=== PATIENT | male | born 1955 | race African-American/Black ===

== ENCOUNTER → 2017-04-14 | Outpatient (CLI) | payer MEDICARE, MEDICAID ==
[~2017-04-14] MED LIST: AMLO10TA80 PO; GLIP2.5T3 PO; LINA5TAB PO; MELO-106 PO; PANT40TA4 PO; ROSU40TA PO; TERA2CAP4 PO; VALS1TAB78 PO
== END | disposition home or self-care (01) ==
LOC: US 10:44
PROVIDERS: ATTEND Internal Medicine Nephrology
DX: E83.52 Hypercalcemia (principal)
CPT/HCPCS: 76536

== ENCOUNTER → 2017-05-04 | Outpatient (CLI) | payer MEDICARE, MEDICAID ==
[~2017-05-04] MED LIST changes: -AMLO10TA80 PO; -GLIP2.5T3 PO; -LINA5TAB PO; -MELO-106 PO; -PANT40TA4 PO; -ROSU40TA PO; +SODIUM CHLORIDE 0.9% 10ML VIAL ONE; -TERA2CAP4 PO; -VALS1TAB78 PO
== END | disposition home or self-care (01) ==
LOC: NM 07:25
PROVIDERS: ATTEND Internal Medicine Nephrology
DX: E21.0 Primary hyperparathyroidism (principal)
CPT/HCPCS: 78070; A4216; A9500

== ENCOUNTER 2017-06-11 05:24 | Observation (INO) | payer MEDICARE, MEDICAID ==
[~2017-06-11] VITALS: Ht 195.6 cm; Wt 93.0 kg
[~2017-06-11 05:24] MED LIST changes: +AMLO10TA80 PO; +GLIP2.5T3 PO; +LINA5TAB PO; +MELO-106 PO; +PANT40TA4 PO; +ROSU40TA PO; -SODIUM CHLORIDE 0.9% 10ML VIAL ONE; +TERA2CAP4 PO; +VALS1TAB78 PO
[2017-06-11] MEDS: SODIUM CHLORIDE 0.9% 1,000 ML IV SCH ×2 (06:22→06:23)
[2017-06-11] MEDS ORDERED: LIDOCAINE HCL/EPINEPHRINE 1%-EPI 1:100,000 30 ML VIAL INFIL ONE (06:56)
[2017-06-11] MEDS ORDERED: BUPIVACAINE HCL/EPINEPHRINE/PF 0.5%/0.0005 10ML ONE (06:56)
[2017-06-11 07:01] LABS: BASOPHILS % 0.9 % (0.0-2.0); EOSINOPHILS % 4.8 % (0.0-5.0); HEMATOCRIT. 34.8 % (42.0-52.0); HEMOGLOBIN. 11.7 g/dL (14.0-18.0); LYMPHOCYTES % 34.3 % (20.0-50.0); MEAN CORPUSCULAR HEMOGLOBIN 28.7 pg (28.0-32.0); MEAN CORPUSCULAR VOLUME 85.1 fL (80.0-94.0); MEAN PLATELET VOLUME 8.5 fl (7.4-10.4); MONOCYTES % 11.8 % (2.0-8.0); NEUTROPHILS % 48.2 % (40.0-76.0); PLATELET 180 x1000/uL (130-400); RED BLOOD CELL COUNT 4.09 mill/uL (4.7-6.1); RED CELL DISTRIBUTION WIDTH 15.2 % (11.6-14.6)
[2017-06-11 07:17] LABS: CLARITY URINE CLEAR (CLEAR); COLOR URINE YELLOW (YELLOW); KETONES URINE NEGATIVE (NEGATIVE); LEUKOCYTE ESTERASE URINE NEGATIVE (NEGATIVE); NITRITE URINE NEGATIVE (NEGATIVE); OCCULT BLOOD URINE NEGATIVE (NEGATIVE); PH URINE 5.5 (4.5-8.0); PROTEIN URINE NEGATIVE (NEGATIVE); SPECIFIC GRAVITY URINE 1.014 (1.005-1.030)
[2017-06-11] MEDS ORDERED: FENTANYL CITRATE/PF 50MCG/ML 5ML VIAL ONE (07:26)
[2017-06-11] MEDS ORDERED: PROPOFOL 200MG/20ML VIAL IV ONE ×3 (07:27→09:03)
[2017-06-11] MEDS ORDERED: HYDROCODONE/ACETAMINOPHEN 5/325MG TABLET PO PRN ×5 (07:45→13:00)
[2017-06-11] MEDS ORDERED: GLYCOPYRROLATE 0.2 MG/ML 2ML VIAL ONE (07:45)
[2017-06-11] MEDS ORDERED: MORPHINE SULFATE 4 MG/ML CPJ (NOT FOR IM USE) IV PRN ×3 (07:45→13:00)
[2017-06-11] MEDS ORDERED: SUCCINYLCHOLINE CHLORIDE 200MG/10ML VIAL IV ONE (07:45)
[2017-06-11] MEDS ORDERED: MIDAZOLAM HCL 2 MG/2 ML VIAL ONE (07:55)
[2017-06-11] MEDS ORDERED: CEFAZOLIN SODIUM 1000MG/VIAL ONE (08:02)
[2017-06-11] MEDS ORDERED: EPHEDRINE SULFATE 50MG/ML VIAL ONE (08:08)
[2017-06-11] MEDS ORDERED: HYDROMORPHONE HCL/PF 2MG/ML (OR) ONE (08:08)
[2017-06-11] MEDS ORDERED: ONDANSETRON HCL 4MG/2ML VIAL IV PRN ×3 (11:15→13:00)
[2017-06-11] MEDS ORDERED: HYDROMORPHONE HCL/PF 2MG/ML CPJ IV PRN (11:15)
[2017-06-11] MEDS ORDERED: DEXT 5%/0.45% NACL KCL 20MEQ/L 1,000 ML IV SCH (12:46)
[2017-06-11] MEDS ORDERED: ACETAMINOPHEN 325MG TABLET PO PRN (13:00)
[2017-06-11] MEDS ORDERED: CLONIDINE 0.1MG TABLET PO PRN (13:00)
[2017-06-11] MEDS ORDERED: MORPHINE SULFATE 2 MG/ML CPJ (NOT FOR IM USE) IV PRN ×2 (13:00)
[2017-06-11] MEDS ORDERED: MAGNESIUM/ALUMINUM HYDROXIDE/SIMETHICONE 30ML UDC PO PRN (13:00)
[2017-06-11] MEDS ORDERED: DOCUSATE SODIUM 100MG CAPSULE PO PRN (13:00)
[2017-06-11] MEDS ORDERED: GUAIFENESIN 200MG/10ML SUGAR FREE UDC PO PRN (13:00)
[2017-06-11 13:21] VITALS: BP 132/56
[2017-06-11 14:03] VITALS: BP 132/56
[2017-06-11] MEDS: AMLODIPINE 10MG TABLET PO SCH (15:46)
[2017-06-11] MEDS: PANTOPRAZOLE 40MG DR TABLET PO SCH (15:47)
[2017-06-11] MEDS: DEXT 5%/0.45% NACL KCL 20MEQ/L 1,000 ML IV SCH (15:47)
[2017-06-11 16:00] VITALS: BP 129/58
[2017-06-11] MEDS: BLOOD SUGAR DIAGNOSTIC STRIP TEST SCH ×2 (17:40→22:03)
[2017-06-11] MEDS ORDERED: DEXTROSE 50% WATER 50ML SYRINGE IV PRN (17:45)
[2017-06-11] MEDS: INSULIN LISPRO 100 UNITS/ML SUBCUT SCH ×2 (17:46→22:03)
[2017-06-11 20:30] VITALS: BP 121/58
[2017-06-11] MEDS ORDERED: TERAZOSIN HCL 1MG CAPSULE PO SCH (21:00)
[2017-06-11] MEDS: SODIUM CHLORIDE 0.9% INJ 3ML FLUSH IVF SCH (22:00)
[2017-06-12] VITALS: BP 123/59
[2017-06-12] MEDS: DEXT 5%/0.45% NACL KCL 20MEQ/L 1,000 ML IV SCH (03:05)
[2017-06-12 04:00] VITALS: BP 122/58
[2017-06-12] MEDS: SODIUM CHLORIDE 0.9% INJ 3ML FLUSH IVF SCH (06:00)
[2017-06-12] MEDS: BLOOD SUGAR DIAGNOSTIC STRIP TEST SCH (07:20)
[2017-06-12 07:33] LABS: BASOPHILS % 0.5 % (0.0-2.0); EOSINOPHILS % 2.4 % (0.0-5.0); HEMOGLOBIN. 10.7 g/dL (14.0-18.0); LYMPHOCYTES % 15.8 % (20.0-50.0); MEAN CORPUSCULAR HEMOGLOBIN 28.8 pg (28.0-32.0); MEAN CORPUSCULAR VOLUME 85.7 fL (80.0-94.0); MEAN PLATELET VOLUME 8.9 fl (7.4-10.4); MONOCYTES % 8.5 % (2.0-8.0); NEUTROPHILS % 72.8 % (40.0-76.0); PLATELET 168 x1000/uL (130-400); RED BLOOD CELL COUNT 3.73 mill/uL (4.7-6.1); RED CELL DISTRIBUTION WIDTH 15.3 % (11.6-14.6)
[2017-06-12] MEDS: INSULIN LISPRO 100 UNITS/ML SUBCUT SCH (07:50)
[2017-06-12 08:00] VITALS: BP 113/53
[2017-06-12] MEDS ORDERED: AMLODIPINE 10MG TABLET PO SCH (09:00)
[2017-06-12 09:03] LABS: CHLORIDE 112 mEq/L (98-107)
[2017-06-12] MEDS: AMLODIPINE 10MG TABLET PO SCH (10:00)
[2017-06-12] MEDS: PANTOPRAZOLE 40MG DR TABLET PO SCH (10:00)
[2017-06-12 10:33] VITALS: BP 113/53
== END 2017-06-12 10:50 | disposition home or self-care (01) ==
LOC: OR 05:24 → INTOOBSV 05:25 → 6EST 05:25
PROVIDERS: ADMIT Surgery; ATTEND Surgery
DX: E21.3 Hyperparathyroidism, unspecified (principal); D35.1 Benign neoplasm of parathyroid gland; I10 Essential (primary) hypertension; E11.9 Type 2 diabetes mellitus without complications; K44.9 Diaphragmatic hernia without obstruction or gangrene; D64.9 Anemia, unspecified; Z82.49 Family history of ischemic heart disease and other diseases of the circulatory system
CPT/HCPCS: 36415; 60500; 80048; 80053; 81003; 82962; 83036; 83970; 85025; 88305; 88331; 96372; G0378; J0171; J0330; J0690; J1170; J1815; J2250; J3010; J3490; J7030; J2405; J2704

== ENCOUNTER → 2018-07-08 | Outpatient (CLI) | payer MEDICARE, MEDICAID | END | disposition home or self-care (01) | LOC: US 10:27 | PROVIDERS: ATTEND Orthopaedic Surgery Sports Medicine | DX: I82.441 Acute embolism and thrombosis of right tibial vein (principal) | CPT/HCPCS: 93971 ==

== ENCOUNTER 2020-11-29 14:00 | Emergency (ER) | payer MEDICARE, MEDICAID ==
[~2020-11-29] VITALS: Ht 182.9 cm; Wt 95.0 kg
[~2020-11-29 14:00] MED LIST changes: -PANT40TA4 PO; +PANT40TA51 PO; -VALS1TAB78 PO; +VALS1TAB79 PO
[2020-11-29 16:13] LABS: BASOPHILS % 1.1 % (0.0-2.0); EOSINOPHILS % 3.8 % (0.0-5.0); HEMATOCRIT. 36.8 % (42.0-52.0); HEMOGLOBIN. 12.6 g/dL (14.0-18.0); LYMPHOCYTES % 33.1 % (20.0-50.0); MEAN CORPUSCULAR HEMOGLOBIN 28.9 pg (28.0-32.0); MEAN CORPUSCULAR VOLUME 84.7 fL (80.0-94.0); MEAN PLATELET VOLUME 7.8 fl (7.4-10.4); MONOCYTES % 10.1 % (2.0-8.0); NEUTROPHILS % 51.9 % (40.0-76.0); PLATELET 296 x1000/uL (130-400); RED BLOOD CELL COUNT 4.34 mill/uL (4.7-6.1); RED CELL DISTRIBUTION WIDTH 17.2 % (11.6-14.6)
[2020-11-29 16:16] LABS: CHLORIDE 103 mEq/L (98-107)
[2020-11-29 17:20] VITALS: BP 133/84
[2020-11-29] MEDS ORDERED: FURO-151 MT (17:34)
== END 2020-11-29 17:33 | disposition home or self-care (01) ==
LOC: ER 16:27
DX: I13.0 Hypertensive heart and chronic kidney disease with heart failure and stage 1 through stage 4 chronic kidney disease, or unspecified chronic kidney disease (principal); I50.9 Heart failure, unspecified; R10.13 Epigastric pain; I48.20 Chronic atrial fibrillation, unspecified; E11.22 Type 2 diabetes mellitus with diabetic chronic kidney disease; N18.9 Chronic kidney disease, unspecified; J44.9 Chronic obstructive pulmonary disease, unspecified; Z79.01 Long term (current) use of anticoagulants
CPT/HCPCS: 36415; 71045; 80053; 83880; 84484; 85025; 93005; 99285

== ENCOUNTER 2021-07-04 08:20 | Emergency (ER) | payer MEDICARE, MEDICAID ==
[~2021-07-04] VITALS: Ht 182.9 cm; Wt 100.0 kg
[~2021-07-04 08:20] MED LIST changes: +FURO-151 MT
[2021-07-04 08:28] VITALS: BP 154/70
[2021-07-04] MEDS ORDERED: ACETAMINOPHEN 325MG TABLET PO ONE (08:45)
[2021-07-04] MEDS ORDERED: TOPUD PO (10:19)
[2021-07-04] MEDS ORDERED: LIDO700A30 TP (10:19)
== END 2021-07-04 10:53 | disposition home or self-care (01) ==
LOC: ER 08:20
DX: M25.521 Pain in right elbow (principal); I13.0 Hypertensive heart and chronic kidney disease with heart failure and stage 1 through stage 4 chronic kidney disease, or unspecified chronic kidney disease; E11.22 Type 2 diabetes mellitus with diabetic chronic kidney disease; I48.20 Chronic atrial fibrillation, unspecified; N18.9 Chronic kidney disease, unspecified; I50.9 Heart failure, unspecified; Z79.01 Long term (current) use of anticoagulants; Z79.899 Other long term (current) drug therapy
CPT/HCPCS: 73080; 99283

== ENCOUNTER 2021-09-02 12:27 | Emergency (ER) | payer MEDICARE, MEDICAID ==
[~2021-09-02] VITALS: Ht 182.9 cm; Wt 97.0 kg
[~2021-09-02 12:27] MED LIST changes: +LIDO700A30 TP; +TOPUD PO
[2021-09-02 16:02] LABS: BASOPHILS % 0.8 % (0.0-2.0); EOSINOPHILS % 3.2 % (0.0-5.0); HEMATOCRIT. 44.8 % (42.0-52.0); HEMOGLOBIN. 14.6 g/dL (14.0-18.0); LYMPHOCYTES % 24.3 % (20.0-50.0); MEAN CORPUSCULAR HEMOGLOBIN 27.4 pg (28.0-32.0); MEAN CORPUSCULAR VOLUME 84.1 fL (80.0-94.0); MEAN PLATELET VOLUME 8.5 fl (7.4-10.4); MONOCYTES % 10.4 % (2.0-8.0); NEUTROPHILS % 61.3 % (40.0-76.0); PLATELET 230 x1000/uL (130-400); RED BLOOD CELL COUNT 5.33 mill/uL (4.7-6.1); RED CELL DISTRIBUTION WIDTH 16.5 % (11.6-14.6)
[2021-09-02 16:14] LABS: CHLORIDE 106 mEq/L (98-107)
[2021-09-02] MEDS ORDERED: BENZ200C52 MT (16:47)
[2021-09-02 16:57] VITALS: BP 141/72
== END 2021-09-02 16:59 | disposition home or self-care (01) ==
LOC: ER 12:27
DX: I13.0 Hypertensive heart and chronic kidney disease with heart failure and stage 1 through stage 4 chronic kidney disease, or unspecified chronic kidney disease (principal); I48.92 Unspecified atrial flutter; Z20.822 Contact with and (suspected) exposure to COVID-19; I48.91 Unspecified atrial fibrillation; E11.22 Type 2 diabetes mellitus with diabetic chronic kidney disease; N18.9 Chronic kidney disease, unspecified; Z72.0 Tobacco use; Z79.899 Other long term (current) drug therapy
CPT/HCPCS: 36415; 71045; 80053; 83880; 85025; 87426; 93005; 99285; C9803

== ENCOUNTER 2021-11-23 10:22 | Emergency (ER) | payer MEDICARE, MEDICAID ==
[~2021-11-23] VITALS: Ht 182.9 cm; Wt 98.0 kg
[~2021-11-23 10:22] MED LIST changes: +BENZ200C52 MT
[2021-11-23] MEDS ORDERED: KETOROLAC 15MG/ML VIAL IM ONE (13:45)
[2021-11-23 14:23] VITALS: BP 127/72
[2021-11-23] MEDS ORDERED: NAPR-1176 MT (16:08)
== END 2021-11-23 16:31 | disposition home or self-care (01) ==
LOC: ER 11:36
DX: M25.562 Pain in left knee (principal); Z91.81 History of falling
CPT/HCPCS: 73562; 96372; 99283; J1885

== ENCOUNTER 2023-01-18 17:05 | Emergency (ER) | payer MEDICARE, MEDICAID ==
[~2023-01-18] VITALS: Ht 182.9 cm; Wt 86.0 kg
[~2023-01-18 17:05] MED LIST changes: +CYCL10TA21 MT; +NAPR-1176 MT
[2023-01-18 17:15] VITALS: TEMP 98.2; O2SAT 97
[2023-01-18] MEDS ORDERED: IBUPROFEN 400MG TABLET PO ONE (18:00)
[2023-01-18 18:19] VITALS: BP 134/83; PULSE 85; RESP 20
[2023-01-18] MEDS ORDERED: AZIT250T MT (18:49)
[2023-01-18] MEDS ORDERED: BENZ100C86 MT (18:49)
== END 2023-01-18 18:55 | disposition home or self-care (01) ==
LOC: ER 17:05
DX: J40 Bronchitis, not specified as acute or chronic (principal); E11.9 Type 2 diabetes mellitus without complications; E78.00 Pure hypercholesterolemia, unspecified; I10 Essential (primary) hypertension; Z98.890 Other specified postprocedural states; Z79.899 Other long term (current) drug therapy
CPT/HCPCS: 99284; 71045; 87426; 87804 ×2; C9803

== ENCOUNTER 2023-03-24 10:05 | Emergency (ER) | payer MEDICARE, MEDICAID ==
[~2023-03-24] VITALS: Ht 177.8 cm; Wt 91.0 kg
[~2023-03-24 10:05] MED LIST changes: +AZIT250T MT; +BENZ100C86 MT
[2023-03-24 10:16] VITALS: BP 124/71; O2SAT 99
[2023-03-24] MEDS ORDERED: ASPIRIN 81MG TABLET PO ONE (11:00)
[2023-03-24 11:26] LABS: INR 1.1; PROTHROMBIN TIME 11.4 sec (9.6-11.0)
[2023-03-24 11:29] LABS: BASOPHILS % 1.3 % (0.0-2.0); EOSINOPHILS % 2.2 % (0.0-5.0); HEMATOCRIT. 58.5 % (42.0-52.0); HEMOGLOBIN. 18.7 g/dL (14.0-18.0); LYMPHOCYTES % 30.4 % (20.0-50.0); MEAN CORPUSCULAR HEMOGLOBIN 28.7 pg (28.0-32.0); MEAN CORPUSCULAR HGB CONC 31.9 g/dL (31.0-37.0); MEAN PLATELET VOLUME 8.9 fl (7.4-10.4); MONOCYTES % 9.6 % (2.0-8.0); NEUTROPHILS % 56.5 % (40.0-76.0); PLATELET 192 x1000/uL (130-400); RED BLOOD CELL COUNT 6.51 mill/uL (4.7-6.1); RED CELL DISTRIBUTION WIDTH 17.1 % (11.6-14.6); WHITE BLOOD COUNT 5.8 x1000/uL (4.5-11.0)
[2023-03-24 11:38] LABS: ALANINE AMINOTRANSFERASE 36 IU/L (10-49); ASPARTATE AMINOTRANSFERASE 33 IU/L (<34); BILIRUBIN TOTAL 1.5 mg/dL (0.1-1.0); CALCIUM 9.7 mg/dL (8.7-10.4); CARBON DIOXIDE 25 mEq/L (21-32); CHLORIDE 103 mEq/L (98-107); CREATININE 1.8 mg/dL (0.6-1.3); GLUCOSE 187 mg/dL (70-105); POTASSIUM 3.6 mEq/L (3.5-5.1); PROTEIN TOTAL 7.7 g/dL (6.0-8.3); SODIUM 138 mEq/L (136-145); TROPONIN I HIGH SENSITIVITY 34 ng/L (3.0-53); UREA NITROGEN BLOOD 17 mg/dL (9-23)
[2023-03-24 13:11] LABS: TROPONIN I HIGH SENSITIVITY 35 ng/L (3.0-53)
[2023-03-24] MEDS ORDERED: METH-653 MT (13:35)
[2023-03-24 13:48] VITALS: PULSE 85; RESP 16; TEMP 98
== END 2023-03-24 13:49 | disposition home or self-care (01) ==
LOC: ER 10:05
DX: R07.89 Other chest pain (principal); I10 Essential (primary) hypertension; E78.00 Pure hypercholesterolemia, unspecified; E11.9 Type 2 diabetes mellitus without complications; Z88.1 Allergy status to other antibiotic agents; Z79.899 Other long term (current) drug therapy
CPT/HCPCS: 36415; 71045; 80053; 83880; 84484; 85025; 99284

== ENCOUNTER 2024-01-12 22:07 | Emergency (ER) | payer MEDICARE, MEDICAID ==
[~2024-01-12] VITALS: Ht 182.9 cm; Wt 98.0 kg
[~2024-01-12 22:07] MED LIST changes: +ALLO300T2 PO; +AMLO10TA80 MT; +APIX5TAB MT; -AZIT250T MT; -BENZ100C86 MT; -BENZ200C52 MT; -CYCL10TA21 MT; +DAPA10TA MT; +EZET10TA81 PO; +INSU100I28 SQ; +METO-539 MT; -NAPR-1176 MT; -PANT40TA51 PO
[2024-01-12 22:19] VITALS: O2SAT 100
[2024-01-12 23:33] LABS: BASOPHILS % 1.6 % (0.0-2.0); EOSINOPHILS % 2.2 % (0.0-5.0); HEMATOCRIT. 52.8 % (42.0-52.0); HEMOGLOBIN. 17.7 g/dL (14.0-18.0); LYMPHOCYTES % 36.6 % (20.0-50.0); MEAN CORPUSCULAR HEMOGLOBIN 29.8 pg (28.0-32.0); MEAN CORPUSCULAR HGB CONC 33.5 g/dL (31.0-37.0); MONOCYTES % 10.8 % (2.0-8.0); NEUTROPHILS % 48.8 % (40.0-76.0); PLATELET 158 x1000/uL (130-400); RED BLOOD CELL COUNT 5.94 mill/uL (4.7-6.1); RED CELL DISTRIBUTION WIDTH 15.1 % (11.6-14.6); WHITE BLOOD COUNT 6.3 x1000/uL (4.5-11.0)
[2024-01-12] MEDS: SODIUM CHLORIDE 0.9% 1,000 ML IV ONE (23:33)
[2024-01-12 23:47] LABS: POTASSIUM 5.2 mEq/L (3.5-5.1)
[2024-01-12 23:48] LABS: CALCIUM 9.8 mg/dL (8.7-10.4)
[2024-01-12 23:53] LABS: CREATININE 2.4 mg/dL (0.6-1.3)
[2024-01-12 23:55] LABS: BETA HYDROXYBUTYRATE 0.2 mMol/L (0.0-0.3)
[2024-01-13 01:15] VITALS: BP 130/67; PULSE 80; RESP 18; TEMP 36.89184; O2SAT 100
== END 2024-01-13 01:01 | disposition home or self-care (01) ==
LOC: ER 22:07
DX: E11.65 Type 2 diabetes mellitus with hyperglycemia (principal); I10 Essential (primary) hypertension; E78.00 Pure hypercholesterolemia, unspecified; Z88.1 Allergy status to other antibiotic agents; Z79.899 Other long term (current) drug therapy; Z79.4 Long term (current) use of insulin
CPT/HCPCS: 99283; 96360; 80048; 82010; 82962; 85025; 36415; J7030

== ENCOUNTER 2024-07-20 15:25 | Emergency (ER) | payer MEDICARE, MEDICAID ==
[~2024-07-20] VITALS: Ht 182.9 cm; Wt 90.7 kg
[~2024-07-20 15:25] MED LIST changes: -GLIP2.5T3 PO; +[UNRECOGNIZED DRUG - CODE] PO
[2024-07-20 15:27] VITALS: O2SAT 98
[2024-07-20 16:56] LABS: BASOPHILS % 0.6 % (0.0-2.0); EOSINOPHILS % 1.9 % (0.0-5.0); HEMATOCRIT. 49.9 % (42.0-52.0); HEMOGLOBIN. 16.6 g/dL (14.0-18.0); LYMPHOCYTES % 30.9 % (20.0-50.0); MEAN CORPUSCULAR HEMOGLOBIN 29.2 pg (28.0-32.0); MEAN CORPUSCULAR HGB CONC 33.3 g/dL (31.0-37.0); MEAN CORPUSCULAR VOLUME 87.5 fL (80.0-94.0); MONOCYTES % 10.5 % (2.0-8.0); NEUTROPHILS % 56.1 % (40.0-76.0); PLATELET 199 x1000/uL (130-400); RED CELL DISTRIBUTION WIDTH 16.2 % (11.6-14.6); WHITE BLOOD COUNT 6.6 x1000/uL (4.5-11.0)
[2024-07-20 16:57] LABS: POTASSIUM 4.1 mEq/L (3.5-5.1)
[2024-07-20 16:58] LABS: CALCIUM 9.8 mg/dL (8.7-10.4)
[2024-07-20 17:02] LABS: CREATININE 2.6 mg/dL (0.6-1.3)
[2024-07-20 17:12] LABS: CLARITY URINE CLEAR (CLEAR); COLOR URINE YELLOW (YELLOW); GLUCOSE URINE 3+ (NEGATIVE); KETONES URINE NEGATIVE (NEGATIVE); LEUKOCYTE ESTERASE URINE NEGATIVE (NEGATIVE); NITRITE URINE NEGATIVE (NEGATIVE); OCCULT BLOOD URINE NEGATIVE (NEGATIVE); PH URINE 5.5 (4.5-8.0); PROTEIN URINE NEGATIVE (NEGATIVE); SPECIFIC GRAVITY URINE 1.017 (1.005-1.030); UROBILINOGEN URINE 0.2 E.U./dL (0.2-1.0)
[2024-07-20 17:19] LABS: BACTERIA URINE TRACE; RBC URINE NONE SEEN /hpf (0-2); SQUAMOUS EPITHELIAL CELL URINE RARE /lpf (RARE/1+)
[2024-07-20 17:20] LABS: WBC URINE NONE SEEN /hpf (0-2)
[2024-07-20] MEDS: SODIUM CHLORIDE 0.9% 1,000 ML IV ONE (17:58)
[2024-07-20] MEDS: INSULIN REGULAR (HUMULIN R) 1000UNITS/10ML VIAL IV ONE (17:58)
[2024-07-20 18:59] VITALS: TEMP 36.7
[2024-07-20 19:34] VITALS: BP 38/63; PULSE 67; RESP 16; O2SAT 99
== END 2024-07-20 19:38 | disposition home or self-care (01) ==
LOC: ER 15:25
DX: E11.65 Type 2 diabetes mellitus with hyperglycemia (principal); E11.22 Type 2 diabetes mellitus with diabetic chronic kidney disease; I12.9 Hypertensive chronic kidney disease with stage 1 through stage 4 chronic kidney disease, or unspecified chronic kidney disease; N18.9 Chronic kidney disease, unspecified; E78.00 Pure hypercholesterolemia, unspecified; Z79.899 Other long term (current) drug therapy; Z88.1 Allergy status to other antibiotic agents
CPT/HCPCS: 99283; 96360; 80048; 81003; 82962; 83690; 85025; 36415; J7030

== ENCOUNTER 2024-08-05 03:51 | Emergency (ER) | payer MEDICARE, MEDICAID ==
[~2024-08-05] VITALS: Ht 172.7 cm; Wt 99.0 kg
[2024-08-05 04:08] VITALS: O2SAT 99
[2024-08-05 04:17] VITALS: BP 115/91; PULSE 86; RESP 18; TEMP 36.7; O2SAT 99
[2024-08-05 04:54] LABS: HEMATOCRIT. 52.1 % (42.0-52.0); HEMOGLOBIN. 17.1 g/dL (14.0-18.0); MEAN CORPUSCULAR HEMOGLOBIN 28.5 pg (28.0-32.0); MEAN CORPUSCULAR HGB CONC 32.9 g/dL (31.0-37.0); MEAN CORPUSCULAR VOLUME 86.7 fL (80.0-94.0); PLATELET 157 x1000/uL (130-400); RED BLOOD CELL COUNT 6.01 mill/uL (4.7-6.1); RED CELL DISTRIBUTION WIDTH 15.9 % (11.6-14.6)
[2024-08-05 05:02] LABS: DIFFERENTIAL COMMENT 1
[2024-08-05 05:16] LABS: CHLORIDE 100 mEq/L (98-107); POTASSIUM 3.5 mEq/L (3.5-5.1); SODIUM 138 mEq/L (136-145)
[2024-08-05 05:17] LABS: CALCIUM 9.5 mg/dL (8.7-10.4); CARBON DIOXIDE 27 mEq/L (21-32)
[2024-08-05 05:22] LABS: CREATININE 2.1 mg/dL (0.6-1.3); TROPONIN I HIGH SENSITIVITY 38 ng/L (3.0-53); UREA NITROGEN BLOOD 21 mg/dL (9-23)
[2024-08-05 05:31] LABS: GLUCOSE 156 mg/dL (70-105)
[2024-08-05 07:11] LABS: ATYPICAL LYMPHOCYTES 15
[2024-08-05] MEDS: BENZONATATE 100MG CAPSULE PO ONE (07:11)
[2024-08-05] MEDS: ACETAMINOPHEN 325MG TABLET PO ONE (07:11)
[2024-08-05 07:15] LABS: PLATELET ESTIMATE NORMAL
[2024-08-05 07:18] LABS: GIANT PLATELETS FEW
[2024-08-05] MEDS ORDERED: TOPUD PO (08:39)
[2024-08-05] MEDS ORDERED: GUAI5SYR3 PO (08:41)
[2024-08-05] MEDS ORDERED: ALBU90AE INH (08:41)
[2024-08-05 12:10] LABS: INFLUENZA TYPE A Presumptive Negative (Pres. Neg.); INFLUENZA TYPE B Presumptive Negative (Pres. Neg.)
== END 2024-08-05 08:58 | disposition home or self-care (01) ==
LOC: ER 03:51
DX: B34.9 Viral infection, unspecified (principal); I11.0 Hypertensive heart disease with heart failure; I50.9 Heart failure, unspecified; Z20.822 Contact with and (suspected) exposure to COVID-19; Z79.4 Long term (current) use of insulin; Z88.1 Allergy status to other antibiotic agents; Z79.899 Other long term (current) drug therapy
CPT/HCPCS: 36415; 71045; 80048; 83880; 84484; 85025; 87070; 87426; 87430; 87804; 93005; 99285

== ENCOUNTER 2025-01-16 08:15 | Emergency (ER) | payer MEDICARE, MEDICAID ==
[~2025-01-16] VITALS: Ht 185.4 cm; Wt 88.0 kg
[~2025-01-16 08:15] MED LIST changes: +ALBU90AE INH
[2025-01-16 08:22] VITALS: TEMP 37.2; O2SAT 99
[2025-01-16] MEDS: MAGNESIUM/ALUMINUM HYDROXIDE/SIMETHICONE 30ML UDC PO ONE (08:51)
[2025-01-16] MEDS: ONDANSETRON 4MG ODT PO ONE (08:51)
[2025-01-16 09:33] LABS: BASOPHILS % 0.6 % (0.0-2.0); EOSINOPHILS % 1.9 % (0.0-5.0); HEMATOCRIT. 56.1 % (42.0-52.0); HEMOGLOBIN. 17.9 g/dL (14.0-18.0); LYMPHOCYTES % 20.2 % (20.0-50.0); MEAN PLATELET VOLUME 8.5 fl (7.4-10.4); MONOCYTES % 12.3 % (2.0-8.0); NEUTROPHILS % 65.0 % (40.0-76.0); PLATELET 187 x1000/uL (130-400); RED BLOOD CELL COUNT 6.42 mill/uL (4.7-6.1); RED CELL DISTRIBUTION WIDTH 15.9 % (11.6-14.6)
[2025-01-16 09:46] LABS: UREA NITROGEN BLOOD 26 mg/dL (9-23)
[2025-01-16 09:47] LABS: TROPONIN I HIGH SENSITIVITY 42 ng/L (3.0-53)
[2025-01-16 09:48] LABS: ASPARTATE AMINOTRANSFERASE 34 IU/L (<34); BILIRUBIN DIRECT 0.6 mg/dL (<=3.0); BILIRUBIN TOTAL 1.8 mg/dL (0.1-1.0); PROTEIN TOTAL 7.0 g/dL (6.0-8.3)
[2025-01-16 09:51] VITALS: TEMP 98.9
[2025-01-16] MEDS: ACETAMINOPHEN 325MG TABLET PO ONE (09:51)
[2025-01-16] MEDS: KETOROLAC 15MG/ML VIAL IM ONE (09:51)
[2025-01-16 10:35] LABS: CREATININE 2.8 mg/dL (0.6-1.3)
[2025-01-16 11:41] VITALS: BP 121/55; PULSE 78; RESP 14; O2SAT 98
== END 2025-01-16 11:43 | disposition left against medical advice (07) ==
LOC: ER 08:15 → CMPBEDREQ 13:11
DX: I13.0 Hypertensive heart and chronic kidney disease with heart failure and stage 1 through stage 4 chronic kidney disease, or unspecified chronic kidney disease (principal); N17.9 Acute kidney failure, unspecified; I50.9 Heart failure, unspecified; N18.9 Chronic kidney disease, unspecified; R10.33 Periumbilical pain; E11.9 Type 2 diabetes mellitus without complications; E78.00 Pure hypercholesterolemia, unspecified; Z79.01 Long term (current) use of anticoagulants; Z95.0 Presence of cardiac pacemaker; Z79.899 Other long term (current) drug therapy; Z79.84 Long term (current) use of oral hypoglycemic drugs; Z79.4 Long term (current) use of insulin; Z88.1 Allergy status to other antibiotic agents
CPT/HCPCS: 99285; 74176; 71045; 80076; 80048; 83690; 85025; 84484; 36415; 93005; 96372; J1885; Q0162